=== PATIENT | male | born 1955 | race Caucasian/White ===

== ENCOUNTER 2023-10-17 14:23 | Inpatient (IN) | payer OTHER ==
[2023-10-17 16:05] LABS: BASO % 0.5 % (0-2.0); EOS % 0.9 % (0-4.5); HEMATOCRIT 29.7 % (35.4-49); HEMOGLOBIN 9.7 GM/dL (11.7-16.9); MCH 27.3 pg (25.7-33.7); MCHC 32.6 g/dl (32.0-35.9); MEAN CELL VOLUME 83.7 fl (80-96); MEAN PLT VOLUME 7.6 fl (7.5-11.1); MONO % 6.5 % (3.8-10.2); NEUT % 76.1 % (42.8-82.8); PLATELET COUNT 486 10^3/uL (134-434); RBC 3.54 M/mm3 (4.00-5.60); RDW 17.8 % (11.9-15.9); WHITE BLOOD COUNT 7.4 K/mm3 (4.0-10.0)
[2023-10-17 16:09] LABS: INR 1.09 (0.83-1.09); PROTHROMBIN TIME (PATIENT) 12.3 SEC (9.7-13.0)
[2023-10-17 16:11] LABS: ACTIVATED PTT 19.9 SECONDS (25.2-36.5)
[2023-10-17 16:24] LABS: POTASSIUM 4.5 mmol/L (3.5-5.1)
[2023-10-17 16:28] LABS: ALBUMIN 2.8 g/dl (3.4-5.0); CALCIUM 9.1 mg/dL (8.5-10.1)
[2023-10-17 16:32] LABS: CREATININE 0.5 mg/dL (0.55-1.3)
[2023-10-17 16:33] LABS: BILIRUBIN,TOTAL 0.4 mg/dL (0.2-1)
[2023-10-17] MEDS ORDERED: PIPERACILLIN/TAZOB 4.5 GM 4.5 GM/100 ML BAG IVPB ONE (18:52)
[2023-10-17] MEDS: PIPERACILLIN/TAZOB 4.5 GM 4.5 GM in DEXTROSE 5%-WATER 100 ML IVPB ONE (18:53)
[2023-10-17] MEDS: VANCOMYCIN HCL 1,500 MG in DEXTROSE 5%-WATER - 500 ML IVPB ONE (19:30)
[2023-10-17] MEDS: VANCOMYCIN PREMIX 1.5 GM 1,500 MG/300 ML BAG IVPB ONE (20:21)
[2023-10-18] MEDS: PIPERACILLIN/TAZOB 4.5 GM 4.5 GM in DEXTROSE 5%-WATER 100 ML IVPB SCH (01:23)
[2023-10-18 05:26] VITALS: BMI 14.9
[2023-10-18 08:52] VITALS: RESP 18
[2023-10-18 10:12] LABS: BASO % 0.8 % (0-2.0); HEMATOCRIT 29.5 % (35.4-49); HEMOGLOBIN 9.7 GM/dL (11.7-16.9); LYMPH % 11.5 % (8-40); MCH 27.7 pg (25.7-33.7); MCHC 32.9 g/dl (32.0-35.9); MEAN CELL VOLUME 84.2 fl (80-96); MEAN PLT VOLUME 6.7 fl (7.5-11.1); MONO % 6.2 % (3.8-10.2); NEUT % 80.5 % (42.8-82.8); PLATELET COUNT 473 10^3/uL (134-434); RDW 17.8 % (11.9-15.9)
[2023-10-18 10:27] LABS: POTASSIUM 3.7 mmol/L (3.5-5.1)
[2023-10-18 10:30] LABS: CALCIUM 8.9 mg/dL (8.5-10.1)
[2023-10-18 10:31] LABS: ALBUMIN 2.9 g/dl (3.4-5.0); BLOOD UREA NITROGEN 20.2 mg/dL (7-18); MAGNESIUM 2.3 mg/dL (1.8-2.4)
[2023-10-18 10:34] LABS: CREATININE 0.6 mg/dL (0.55-1.3); PHOSPHOROUS 3.6 mg/dL (2.5-4.9)
[2023-10-18 10:35] LABS: BILIRUBIN,TOTAL 0.5 mg/dL (0.2-1)
[2023-10-18] MEDS: ACETAMINOPHEN 650 MG/20.3 ML ORAL SOLUTION (CUPS) PEG PRN (11:10)
[2023-10-18] MEDS: QUEtiapine FUMARATE 25 MG TABLET GT SCH (11:11)
[2023-10-18] MEDS: PANTOPRAZOLE SODIUM 40 MG VIAL IVPUSH SCH (11:12)
[2023-10-18] MEDS: SCOPOLAMINE HYDROBROMIDE 1 PATCH PATCH.TD72 TD SCH (18:46)
[2023-10-18] MEDS ORDERED: METOPROLOL TARTRATE 25 MG TABLET (FP) GT SCH (22:00)
[2023-10-19] MEDS: SODIUM CHLORIDE 500 ML IV STA (01:03)
[2023-10-19] MEDS: PIPERACILLIN/TAZOB 4.5 GM 4.5 GM in DEXTROSE 5%-WATER 100 ML IVPB SCH ×2 (09:24→14:55)
[2023-10-19 10:16] LABS: BASO % 0.9 % (0-2.0); EOS % 2.3 % (0-4.5); HEMATOCRIT 25.5 % (35.4-49); HEMOGLOBIN 8.4 GM/dL (11.7-16.9); LYMPH % 18.1 % (8-40); MCH 27.7 pg (25.7-33.7); MEAN CELL VOLUME 83.8 fl (80-96); MONO % 7.5 % (3.8-10.2); NEUT % 71.2 % (42.8-82.8); PLATELET COUNT 442 10^3/uL (134-434); RBC 3.05 M/mm3 (4.00-5.60); RDW 17.5 % (11.9-15.9); WHITE BLOOD COUNT 5.6 K/mm3 (4.0-10.0)
[2023-10-19 10:34] LABS: CALCIUM 8.2 mg/dL (8.5-10.1); MAGNESIUM 2.1 mg/dL (1.8-2.4)
[2023-10-19 10:35] LABS: BLOOD UREA NITROGEN 14.9 mg/dL (7-18)
[2023-10-19 10:37] LABS: ALBUMIN 2.3 g/dl (3.4-5.0); CREATININE 0.3 mg/dL (0.55-1.3); PHOSPHOROUS 2.7 mg/dL (2.5-4.9)
[2023-10-19 10:39] LABS: BILIRUBIN,TOTAL 0.2 mg/dL (0.2-1); TOT PROT 5.8 g/dl (6.4-8.2)
[2023-10-20] MEDS: IRON SUCROSE INJECTION 100 MG in SODIUM CHLORIDE 95 ML IVPB ONE (18:56)
[2023-10-21] MEDS ORDERED: SCOPOLAMINE HYDROBROMIDE 1 PATCH PATCH.TD72 TD SCH (07:45)
[2023-10-21] MEDS: BUDESONIDE 0.5 MG/2 ML INH SUSP VIAL NEB SCH (08:40)
[2023-10-21 09:49] LABS: BASO % 0.8 % (0-2.0); EOS % 2.2 % (0-4.5); HEMATOCRIT 26.5 % (35.4-49); HEMOGLOBIN 8.8 GM/dL (11.7-16.9); LYMPH % 15.9 % (8-40); MCH 27.9 pg (25.7-33.7); MCHC 33.2 g/dl (32.0-35.9); MEAN CELL VOLUME 84.1 fl (80-96); MEAN PLT VOLUME 6.8 fl (7.5-11.1); MONO % 7.3 % (3.8-10.2); NEUT % 73.8 % (42.8-82.8); PLATELET COUNT 446 10^3/uL (134-434); RBC 3.15 M/mm3 (4.00-5.60); RDW 17.7 % (11.9-15.9); WHITE BLOOD COUNT 4.9 K/mm3 (4.0-10.0)
[2023-10-21 10:07] LABS: POTASSIUM 3.9 mmol/L (3.5-5.1)
[2023-10-21 10:13] LABS: BLOOD UREA NITROGEN 15.3 mg/dL (7-18); CALCIUM 8.4 mg/dL (8.5-10.1)
[2023-10-21 10:14] LABS: ALBUMIN 2.4 g/dl (3.4-5.0); MAGNESIUM 2.2 mg/dL (1.8-2.4)
[2023-10-21 10:17] LABS: CREATININE 0.4 mg/dL (0.55-1.3)
[2023-10-21 10:18] LABS: BILIRUBIN,TOTAL 0.2 mg/dL (0.2-1); TOT PROT 6.2 g/dl (6.4-8.2)
[2023-10-21] MEDS: CYANOCOBALAMIN 1,000 MCG TABLET (FP) GT SCH (11:16)
[2023-10-21] MEDS: POLYETHYLENE GLYCOL (HEALTHYLAX) 3350 17 GM PACKET GT SCH (11:16)
[2023-10-21] MEDS: CHOLECALCIFEROL (VIT D3) 1,000 UNIT (25 MCG) TABLET GT SCH (11:16)
[2023-10-21] MEDS: FOLIC ACID 1 MG TABLET (FP) GT SCH (11:16)
[2023-10-21] MEDS: DOCUSATE NA 100 MG/10 ML UNIT-DOSE CUPS GT SCH (11:16)
[2023-10-21] MEDS: GABAPENTIN 250 MG/5 ML ORAL SOLUTION, 470 ML BOTTLE GT SCH (14:10)
[2023-10-22 09:41] LABS: BASO % 1.1 % (0-2.0); HEMATOCRIT 27.2 % (35.4-49); LYMPH % 17.4 % (8-40); MCH 27.8 pg (25.7-33.7); MEAN CELL VOLUME 84.2 fl (80-96); MEAN PLT VOLUME 6.9 fl (7.5-11.1); MONO % 6.9 % (3.8-10.2); NEUT % 70.6 % (42.8-82.8); PLATELET COUNT 468 10^3/uL (134-434); RBC 3.23 M/mm3 (4.00-5.60); RDW 17.5 % (11.9-15.9); WHITE BLOOD COUNT 5.7 K/mm3 (4.0-10.0)
[2023-10-22 09:43] LABS: POTASSIUM 4.2 mmol/L (3.5-5.1)
[2023-10-22 09:45] LABS: CALCIUM 8.8 mg/dL (8.5-10.1)
[2023-10-22 09:46] LABS: ALBUMIN 2.4 g/dl (3.4-5.0); MAGNESIUM 2.2 mg/dL (1.8-2.4)
[2023-10-22 09:49] LABS: CREATININE 0.5 mg/dL (0.55-1.3)
[2023-10-22 09:51] LABS: BILIRUBIN,TOTAL 0.2 mg/dL (0.2-1); TOT PROT 6.1 g/dl (6.4-8.2)
[2023-10-22] MEDS ORDERED: APIXABAN 5 MG TABLET GT SCH (10:00)
[2023-10-22] MEDS: SODIUM CHLORIDE 500 ML IV STA ×2 (10:15→14:41)
[2023-10-22 18:24] VITALS: BP 105/66; PULSE 63; TEMP 98.1
== END 2023-10-22 19:48 | DRG 177 ==
LOC: JER 14:23 → JERBED 18:59 → J8W 20:58 → J5S 10-18 08:29
PROVIDERS: ADMIT Internal Medicine; ATTEND Internal Medicine
DX: J69.0 Pneumonitis due to inhalation of food and vomit (principal); E43 Unspecified severe protein-calorie malnutrition; J96.21 Acute and chronic respiratory failure with hypoxia; J44.0 Chronic obstructive pulmonary disease with (acute) lower respiratory infection; R04.2 Hemoptysis; Z68.1 Body mass index [BMI] 19.9 or less, adult; R78.81 Bacteremia; J95.851 Ventilator associated pneumonia; R64 Cachexia; I10 Essential (primary) hypertension; M48.02 Spinal stenosis, cervical region; D64.9 Anemia, unspecified; Z93.1 Gastrostomy status; Z93.0 Tracheostomy status; Z99.81 Dependence on supplemental oxygen
CPT/HCPCS: 0241U-QW; 36415; 70498-TC; 71045-TC-FY; 71260-TC; 80053; 82728; 82962; 83540; 83550; 83735; 84100; 85025; 85045; 85610; 85730; 86850; 86900; 86901; 87040; 87070; 87081; 87186; 87205; 93005; 93010; 93306-TC; 94640; 97116-GP; 97161-GP; 99285-25; J1756; Q9967

== ENCOUNTER 2023-11-08 00:37 | Inpatient (IN) | payer OTHER ==
[2023-11-08] MEDS ORDERED: ALBUTEROL SO4 2.5/IPRATROPIUM 0.5 INH SOL 3 ML VIAL.NEB. NEB ONE ×2 (00:51→01:20)
[2023-11-08] MEDS: SODIUM CHLORIDE 500 ML IV STA (01:00)
[2023-11-08] MEDS: ALBUTEROL SO4 2.5/IPRATROPIUM 0.5 INH SOL 3 ML VIAL.NEB. NEB ONE ×2 (01:00→01:26)
[2023-11-08 01:12] LABS: BASO % 0.2 % (0-2.0); EOS % 0.9 % (0-4.5); HEMATOCRIT 25.2 % (35.4-49); HEMOGLOBIN 8.5 GM/dL (11.7-16.9); LYMPH % 10.3 % (8-40); MCH 27.9 pg (25.7-33.7); MCHC 33.6 g/dl (32.0-35.9); MEAN CELL VOLUME 83.1 fl (80-96); MEAN PLT VOLUME 6.7 fl (7.5-11.1); MONO % 7.4 % (3.8-10.2); NEUT % 81.2 % (42.8-82.8); PLATELET COUNT 331 10^3/uL (134-434); RBC 3.03 M/mm3 (4.00-5.60); RDW 17.8 % (11.9-15.9); WHITE BLOOD COUNT 8.7 K/mm3 (4.0-10.0)
[2023-11-08] MEDS: BUDESONIDE 0.25 MG/2ML INH SUSP VIAL NEB ONE (01:26)
[2023-11-08 01:41] LABS: POTASSIUM 3.6 mmol/L (3.5-5.1)
[2023-11-08 01:42] LABS: CALCIUM 8.6 mg/dL (8.5-10.1)
[2023-11-08 01:43] LABS: ALBUMIN 2.4 g/dl (3.4-5.0); BLOOD UREA NITROGEN 22.3 mg/dL (7-18)
[2023-11-08 01:47] LABS: CREATININE 0.5 mg/dL (0.55-1.3)
[2023-11-08 01:48] LABS: BILIRUBIN,TOTAL 0.2 mg/dL (0.2-1); TOT PROT 6.1 g/dl (6.4-8.2)
[2023-11-08] MEDS ORDERED: PIPERACILLIN/TAZOB 4.5 GM 4.5 GM/100 ML BAG IVPB ONE (01:50)
[2023-11-08] MEDS ORDERED: VANCOMYCIN 1 GRAM (PRE-DOCKED) 1,000 MG/250 ML BAG IVPB ONE (01:50)
[2023-11-08 01:51] LABS: N-TERMINAL BNP 412.9 pg/ml (5-125)
[2023-11-08] MEDS: PIPERACILLIN/TAZOB 4.5 GM 4.5 GM in DEXTROSE 5%-WATER 100 ML IVPB ONE (01:57)
[2023-11-08 02:07] LABS: ARTERIAL BLD GAS O2 SATURATION 98.4 % (95-98); ARTERIAL BLOOD GAS BASE EXCESS 4.9 mmol/L (-2-2); ARTERIAL BLOOD GAS PO2 113.9 mmHg (80-100); ARTERIAL BLOOD GAS pH 7.462 (7.350-7.450)
[2023-11-08 02:15] LABS: INR 1.04 (0.83-1.09)
[2023-11-08 02:16] LABS: ALLENS TEST POSITIVE; VENT MODE V-AC; VENT RATE 20
[2023-11-08 02:18] LABS: ACTIVATED PTT 28.4 SECONDS (25.2-36.5)
[2023-11-08] MEDS: VANCOMYCIN 1,000 MG in DEXTROSE 5%-WATER - 250 ML IVPB ONE (02:27)
[2023-11-08] MEDS: SODIUM CHLORIDE 0.9% 500 ML INFUS.BAG IV ONE (02:28)
[2023-11-08] MEDS: methylPREDNISolone NA SUCC 40 MG/1 ML VIAL IVPUSH SCH (02:54)
[2023-11-08] MEDS: ALBUTEROL SO4 0.083% IH SOL 2.5 MG/3 ML VIAL.NEB. NEB SCH ×2 (02:55→07:43)
[2023-11-08 07:09] LABS: HEMATOCRIT 24.7 % (35.4-49); HEMOGLOBIN 8.1 GM/dL (11.7-16.9); MCH 27.5 pg (25.7-33.7); MCHC 32.8 g/dl (32.0-35.9); MEAN PLT VOLUME 7.8 fl (7.5-11.1); PLATELET COUNT 340 10^3/uL (134-434); RBC 2.94 M/mm3 (4.00-5.60); RDW 17.8 % (11.9-15.9); WHITE BLOOD COUNT 8.7 K/mm3 (4.0-10.0)
[2023-11-08 07:17] LABS: INR 1.05 (0.83-1.09); PROTHROMBIN TIME (PATIENT) 12.1 SEC (9.7-13.0)
[2023-11-08 07:35] LABS: PHOSPHOROUS 3.6 mg/dL (2.5-4.9)
[2023-11-08 09:10] LABS: ANISOCYTOSIS 1+; MACROCYTOSIS 0; OVALOCYTE 1+
[2023-11-08] MEDS: HEPARIN NA (PORCINE) 5,000 UNITS/ML 1ML VIAL SQ SCH (09:11)
[2023-11-08] MEDS: QUEtiapine FUMARATE 25 MG TABLET PO SCH (09:11)
[2023-11-08] MEDS: POLYETHYLENE GLYCOL (HEALTHYLAX) 3350 17 GM PACKET PO SCH (09:11)
[2023-11-08] MEDS: PIPERACILLIN/TAZOB 3.375 GM 3.375 GM in DEXTROSE 5%-WATER - 50 ML IVPB SCH ×2 (09:12→17:45)
[2023-11-08] MEDS: MUPIROCIN 2% TOPICAL OINTMENT FOR DECOLONIZATION NS SCH (09:20)
[2023-11-08] MEDS ORDERED: FAMOTIDINE 20 MG/50 ML IVPB 20 MG/50 ML MG IVPB SCH (10:00)
[2023-11-08] MEDS: LACTATED RINGERS SOLUTION 1000 ML INFUS.BAG IV ONE (11:17)
[2023-11-08] MEDS: GABAPENTIN 100 MG CAPSULE PO SCH (13:49)
[2023-11-08] MEDS ORDERED: VANCOMYCIN 750 MG in DEXTROSE 5%-WATER - 150 ML IVPB SCH (14:00)
[2023-11-08] MEDS ORDERED: VANCOMYCIN/WATER FOR INJ (PEG) 750 MG/150 ML BAG IVPB SCH (14:00)
[2023-11-08 14:11] LABS: ARTERIAL BLD GAS O2 SATURATION 98.8 % (95-98); ARTERIAL BLOOD GAS BASE EXCESS 5.8 mmol/L (-2-2); ARTERIAL BLOOD GAS PO2 126.1 mmHg (80-100); ARTERIAL BLOOD GAS pH 7.507 (7.350-7.450)
[2023-11-08 14:17] LABS: ALLENS TEST POSITIVE
[2023-11-08 14:18] LABS: VENT MODE A/C; VENT RATE 20
[2023-11-08] MEDS: SENNOSIDES 8.6MG TABLET (FP) PO SCH (21:01)
[2023-11-08] MEDS: CHLORHEXIDINE GLUCONATE 4% CLEANSER FOR DECOLONIZATION TP SCH (21:02)
[2023-11-09 07:50] LABS: BASO % 0.3 % (0-2.0); HEMATOCRIT 24.9 % (35.4-49); HEMOGLOBIN 8.1 GM/dL (11.7-16.9); LYMPH % 10.8 % (8-40); MCH 27.2 pg (25.7-33.7); MCHC 32.6 g/dl (32.0-35.9); MEAN CELL VOLUME 83.6 fl (80-96); MEAN PLT VOLUME 7.6 fl (7.5-11.1); MONO % 3.2 % (3.8-10.2); NEUT % 85.7 % (42.8-82.8); PLATELET COUNT 360 10^3/uL (134-434); RBC 2.98 M/mm3 (4.00-5.60); RDW 17.7 % (11.9-15.9); WHITE BLOOD COUNT 6.2 K/mm3 (4.0-10.0)
[2023-11-09 08:24] LABS: BLOOD UREA NITROGEN 19.6 mg/dL (7-18)
[2023-11-09 08:25] LABS: CALCIUM 8.7 mg/dL (8.5-10.1)
[2023-11-09 08:26] LABS: ALBUMIN 2.4 g/dl (3.4-5.0); MAGNESIUM 2.2 mg/dL (1.8-2.4)
[2023-11-09 08:29] LABS: CREATININE 0.4 mg/dL (0.55-1.3); PHOSPHOROUS 3.3 mg/dL (2.5-4.9)
[2023-11-09 08:30] LABS: BILIRUBIN,TOTAL 0.3 mg/dL (0.2-1); TOT PROT 6.2 g/dl (6.4-8.2)
[2023-11-10 08:55] LABS: ARTERIAL BLD GAS O2 SATURATION 97.3 % (95-98); ARTERIAL BLOOD GAS BASE EXCESS 8.4 mmol/L (-2-2); ARTERIAL BLOOD GAS PO2 88.4 mmHg (80-100); ARTERIAL BLOOD GAS pH 7.488 (7.350-7.450)
[2023-11-10 08:57] LABS: ALLENS TEST POSITIVE
[2023-11-10 08:58] LABS: VENT MODE A/C; VENT RATE 20
[2023-11-10 12:49] LABS: HEMATOCRIT 31.1 % (35.4-49); HEMOGLOBIN 10.3 GM/dL (11.7-16.9); MCH 27.7 pg (25.7-33.7); MCHC 33.1 g/dl (32.0-35.9); MEAN CELL VOLUME 83.7 fl (80-96); MEAN PLT VOLUME 7.7 fl (7.5-11.1); PLATELET COUNT 498 10^3/uL (134-434); RBC 3.72 M/mm3 (4.00-5.60); RDW 17.9 % (11.9-15.9); WHITE BLOOD COUNT 7.1 K/mm3 (4.0-10.0)
[2023-11-10 13:09] LABS: CALCIUM 9.5 mg/dL (8.5-10.1)
[2023-11-10 13:10] LABS: BLOOD UREA NITROGEN 24.7 mg/dL (7-18); MAGNESIUM 2.6 mg/dL (1.8-2.4)
[2023-11-10 13:13] LABS: CREATININE 0.6 mg/dL (0.55-1.3); PHOSPHOROUS 2.8 mg/dL (2.5-4.9)
[2023-11-10 13:14] LABS: ALBUMIN 2.9 g/dl (3.4-5.0); BILIRUBIN,TOTAL 0.2 mg/dL (0.2-1); TOT PROT 7.4 g/dl (6.4-8.2)
[2023-11-10] MEDS: ALBUTEROL SO4 2.5/IPRATROPIUM 0.5 INH SOL 3 ML VIAL.NEB. NEB SCH (14:21)
[2023-11-11 07:24] LABS: HEMATOCRIT 27.8 % (35.4-49); HEMOGLOBIN 9.1 GM/dL (11.7-16.9); MCH 27.6 pg (25.7-33.7); MCHC 32.6 g/dl (32.0-35.9); MEAN CELL VOLUME 84.7 fl (80-96); MEAN PLT VOLUME 7.6 fl (7.5-11.1); PLATELET COUNT 429 10^3/uL (134-434); RBC 3.28 M/mm3 (4.00-5.60); WHITE BLOOD COUNT 5.5 K/mm3 (4.0-10.0)
[2023-11-11 07:41] LABS: ALBUMIN 2.6 g/dl (3.4-5.0); CALCIUM 8.8 mg/dL (8.5-10.1)
[2023-11-11 07:42] LABS: BLOOD UREA NITROGEN 28.7 mg/dL (7-18); MAGNESIUM 2.3 mg/dL (1.8-2.4)
[2023-11-11 07:45] LABS: CREATININE 0.5 mg/dL (0.55-1.3); PHOSPHOROUS 2.8 mg/dL (2.5-4.9)
[2023-11-11 07:46] LABS: BILIRUBIN,TOTAL 0.2 mg/dL (0.2-1); TOT PROT 6.3 g/dl (6.4-8.2)
[2023-11-11] MEDS: SCOPOLAMINE HYDROBROMIDE 1 PATCH PATCH.TD72 TD SCH (16:28)
[2023-11-11] MEDS ORDERED: HEPARIN NA (PORCINE) 5,000 UNITS/ML 1ML VIAL SQ SCH (22:00)
[2023-11-11] MEDS: APIXABAN 5 MG TABLET PO SCH (22:03)
[2023-11-12 07:34] LABS: HEMATOCRIT 29.8 % (35.4-49); HEMOGLOBIN 9.7 GM/dL (11.7-16.9); MCH 27.6 pg (25.7-33.7); MCHC 32.6 g/dl (32.0-35.9); MEAN CELL VOLUME 84.5 fl (80-96); MEAN PLT VOLUME 7.3 fl (7.5-11.1); PLATELET COUNT 469 10^3/uL (134-434); RBC 3.52 M/mm3 (4.00-5.60); RDW 17.9 % (11.9-15.9); WHITE BLOOD COUNT 7.9 K/mm3 (4.0-10.0)
[2023-11-12 07:54] LABS: POTASSIUM 4.3 mmol/L (3.5-5.1)
[2023-11-12 07:55] LABS: CALCIUM 8.8 mg/dL (8.5-10.1)
[2023-11-12 07:56] LABS: BLOOD UREA NITROGEN 28.3 mg/dL (7-18); MAGNESIUM 2.1 mg/dL (1.8-2.4)
[2023-11-12 07:59] LABS: CREATININE 0.5 mg/dL (0.55-1.3); PHOSPHOROUS 2.8 mg/dL (2.5-4.9)
[2023-11-12 14:25] VITALS: BMI 14.6
[2023-11-12] MEDS ORDERED: MUPIROCIN 2% TOPICAL OINTMENT FOR DECOLONIZATION NS SCH (22:00)
[2023-11-12] MEDS: SENNOSIDES 8.6MG TABLET (FP) PO SCH (22:02)
[2023-11-12] MEDS: GABAPENTIN 100 MG CAPSULE PO SCH (22:03)
[2023-11-13] MEDS: PIPERACILLIN/TAZOB 3.375 GM 3.375 GM in DEXTROSE 5%-WATER - 50 ML IVPB SCH (02:01)
[2023-11-13] MEDS: AMINO ACIDS/PROTEIN HYDROLYS 30 ML LIQUID.PKT GT SCH (08:48)
[2023-11-13 09:27] LABS: HEMATOCRIT 28.7 % (35.4-49); HEMOGLOBIN 9.6 GM/dL (11.7-16.9); MCH 27.4 pg (25.7-33.7); MCHC 33.3 g/dl (32.0-35.9); MEAN CELL VOLUME 82.2 fl (80-96); PLATELET COUNT 457 10^3/uL (134-434); RBC 3.49 M/mm3 (4.00-5.60); WHITE BLOOD COUNT 8.4 K/mm3 (4.0-10.0)
[2023-11-13 09:46] LABS: POTASSIUM 4.1 mmol/L (3.5-5.1)
[2023-11-13 09:54] LABS: BLOOD UREA NITROGEN 23.1 mg/dL (7-18); CALCIUM 8.6 mg/dL (8.5-10.1)
[2023-11-13 09:58] LABS: CREATININE 0.4 mg/dL (0.55-1.3); PHOSPHOROUS 2.6 mg/dL (2.5-4.9)
[2023-11-13] MEDS: QUEtiapine FUMARATE 25 MG TABLET PO SCH (12:11)
[2023-11-13] MEDS: methylPREDNISolone NA SUCC 40 MG/1 ML VIAL IVPUSH SCH (12:11)
[2023-11-13] MEDS: POLYETHYLENE GLYCOL (HEALTHYLAX) 3350 17 GM PACKET PO SCH (12:12)
[2023-11-15 09:08] LABS: EOS % 0.7 % (0-4.5); HEMATOCRIT 28.2 % (35.4-49); HEMOGLOBIN 9.5 GM/dL (11.7-16.9); LYMPH % 10.3 % (8-40); MCH 28.1 pg (25.7-33.7); MCHC 33.7 g/dl (32.0-35.9); MEAN CELL VOLUME 83.4 fl (80-96); MONO % 3.6 % (3.8-10.2); NEUT % 85.4 % (42.8-82.8); PLATELET COUNT 488 10^3/uL (134-434); RBC 3.38 M/mm3 (4.00-5.60); RDW 18.9 % (11.9-15.9); WHITE BLOOD COUNT 10.8 K/mm3 (4.0-10.0)
[2023-11-15 09:24] LABS: POTASSIUM 3.6 mmol/L (3.5-5.1)
[2023-11-15 09:28] LABS: ALBUMIN 2.3 g/dl (3.4-5.0); BLOOD UREA NITROGEN 25.3 mg/dL (7-18)
[2023-11-15 09:29] LABS: MAGNESIUM 2.2 mg/dL (1.8-2.4)
[2023-11-15 09:32] LABS: CREATININE 0.5 mg/dL (0.55-1.3); PHOSPHOROUS 3.2 mg/dL (2.5-4.9)
[2023-11-15 09:33] LABS: BILIRUBIN,TOTAL 0.2 mg/dL (0.2-1); TOT PROT 5.6 g/dl (6.4-8.2)
[2023-11-17 10:50] LABS: BASO % 0.1 % (0-2.0); EOS % 0.1 % (0-4.5); HEMATOCRIT 28.4 % (35.4-49); HEMOGLOBIN 9.5 GM/dL (11.7-16.9); LYMPH % 11.8 % (8-40); MCH 27.8 pg (25.7-33.7); MCHC 33.4 g/dl (32.0-35.9); MEAN CELL VOLUME 83.2 fl (80-96); MONO % 4.4 % (3.8-10.2); NEUT % 83.6 % (42.8-82.8); PLATELET COUNT 508 10^3/uL (134-434); RBC 3.41 M/mm3 (4.00-5.60); RDW 18.3 % (11.9-15.9); WHITE BLOOD COUNT 8.7 K/mm3 (4.0-10.0)
[2023-11-17 11:03] LABS: POTASSIUM 3.7 mmol/L (3.5-5.1)
[2023-11-17 11:10] LABS: BLOOD UREA NITROGEN 26.4 mg/dL (7-18)
[2023-11-17 11:12] LABS: ALBUMIN 2.4 g/dl (3.4-5.0); CALCIUM 9.1 mg/dL (8.5-10.1)
[2023-11-17 11:14] LABS: CREATININE 0.4 mg/dL (0.55-1.3)
[2023-11-17 11:16] LABS: BILIRUBIN,TOTAL 0.3 mg/dL (0.2-1); TOT PROT 5.9 g/dl (6.4-8.2)
[2023-11-18 09:54] LABS: BASO % 0.1 % (0-2.0); EOS % 0.3 % (0-4.5); HEMATOCRIT 28.7 % (35.4-49); HEMOGLOBIN 9.2 GM/dL (11.7-16.9); LYMPH % 14.6 % (8-40); MCH 27.3 pg (25.7-33.7); MCHC 32.2 g/dl (32.0-35.9); MEAN CELL VOLUME 84.8 fl (80-96); MEAN PLT VOLUME 7.3 fl (7.5-11.1); MONO % 6.2 % (3.8-10.2); NEUT % 78.8 % (42.8-82.8); PLATELET COUNT 494 10^3/uL (134-434); RBC 3.38 M/mm3 (4.00-5.60); RDW 18.2 % (11.9-15.9); WHITE BLOOD COUNT 6.7 K/mm3 (4.0-10.0)
[2023-11-18 10:11] LABS: POTASSIUM 3.7 mmol/L (3.5-5.1)
[2023-11-18 10:14] LABS: ALBUMIN 2.4 g/dl (3.4-5.0); CALCIUM 8.9 mg/dL (8.5-10.1); MAGNESIUM 2.1 mg/dL (1.8-2.4)
[2023-11-18 10:16] LABS: CREATININE 0.4 mg/dL (0.55-1.3)
[2023-11-18 10:17] LABS: PHOSPHOROUS 2.8 mg/dL (2.5-4.9)
[2023-11-18 10:18] LABS: BILIRUBIN,TOTAL 0.2 mg/dL (0.2-1); TOT PROT 5.9 g/dl (6.4-8.2)
[2023-11-19 09:23] LABS: BASO % 0.2 % (0-2.0); EOS % 0.2 % (0-4.5); HEMATOCRIT 28.1 % (35.4-49); HEMOGLOBIN 9.2 GM/dL (11.7-16.9); LYMPH % 16.2 % (8-40); MCH 27.4 pg (25.7-33.7); MCHC 32.7 g/dl (32.0-35.9); MEAN CELL VOLUME 83.8 fl (80-96); MEAN PLT VOLUME 7.1 fl (7.5-11.1); MONO % 6.5 % (3.8-10.2); NEUT % 76.9 % (42.8-82.8); PLATELET COUNT 503 10^3/uL (134-434); RBC 3.36 M/mm3 (4.00-5.60); RDW 18.6 % (11.9-15.9); WHITE BLOOD COUNT 6.6 K/mm3 (4.0-10.0)
[2023-11-19 09:40] LABS: POTASSIUM 3.8 mmol/L (3.5-5.1)
[2023-11-19 09:47] LABS: ALBUMIN 2.4 g/dl (3.4-5.0); BLOOD UREA NITROGEN 26.9 mg/dL (7-18)
[2023-11-19 09:51] LABS: CALCIUM 9.3 mg/dL (8.5-10.1); CREATININE 0.5 mg/dL (0.55-1.3); MAGNESIUM 2.1 mg/dL (1.8-2.4); PHOSPHOROUS 2.5 mg/dL (2.5-4.9)
[2023-11-19 09:53] LABS: BILIRUBIN,TOTAL 0.2 mg/dL (0.2-1); TOT PROT 5.8 g/dl (6.4-8.2)
[2023-11-19] MEDS ORDERED: predniSONE 10 MG TABLET (UD) PO SCH (10:00)
[2023-11-19] MEDS: predniSONE 20 MG TABLET (UD) PO ONE (13:18)
[2023-11-20 06:29] VITALS: RESP 20
[2023-11-20] MEDS: predniSONE 20 MG, predniSONE 10 MG PO ONE (09:41)
[2023-11-20 10:14] LABS: EOS % 0.2 % (0-4.5); HEMATOCRIT 30.4 % (35.4-49); HEMOGLOBIN 9.8 GM/dL (11.7-16.9); MCH 27.3 pg (25.7-33.7); MCHC 32.2 g/dl (32.0-35.9); MEAN CELL VOLUME 84.7 fl (80-96); MEAN PLT VOLUME 7.3 fl (7.5-11.1); MONO % 6.1 % (3.8-10.2); NEUT % 75.7 % (42.8-82.8); PLATELET COUNT 537 10^3/uL (134-434); RBC 3.58 M/mm3 (4.00-5.60); RDW 18.5 % (11.9-15.9); WHITE BLOOD COUNT 7.1 K/mm3 (4.0-10.0)
[2023-11-20 10:55] LABS: POTASSIUM 3.4 mmol/L (3.5-5.1)
[2023-11-20 10:57] LABS: CALCIUM 9.1 mg/dL (8.5-10.1)
[2023-11-20 10:58] LABS: ALBUMIN 2.5 g/dl (3.4-5.0); MAGNESIUM 2.2 mg/dL (1.8-2.4)
[2023-11-20 11:01] LABS: CREATININE 0.4 mg/dL (0.55-1.3); PHOSPHOROUS 2.5 mg/dL (2.5-4.9)
[2023-11-20 11:02] LABS: BILIRUBIN,TOTAL 0.2 mg/dL (0.2-1)
[2023-11-20] MEDS: POTASSIUM CHLORIDE ORAL LIQUID 20 MEQ/15 ML GT ONE (14:19)
[2023-11-20 14:30] VITALS: PULSE 62
[2023-11-20 17:24] VITALS: BP 104/71; TEMP 97.7
[2023-11-21] MEDS ORDERED: predniSONE 20 MG TABLET (UD) PO ONE (10:00)
[2023-11-22] MEDS ORDERED: predniSONE 10 MG TABLET (UD) PO ONE (10:00)
[2023-11-23] MEDS ORDERED: predniSONE 5 MG TABLET (UD) PO ONE (10:00)
== END 2023-11-20 17:52 | DRG 207 ==
LOC: JER 00:37 → JERBED 02:25 → JICU 04:25 → J5S 11-12 18:44
PROVIDERS: ADMIT Internal Medicine Pulmonary Disease; ATTEND Internal Medicine
PROC: 5A1955Z Respiratory Ventilation, Greater than 96 Consecutive Hours (ICD-10-PCS; principal; 2023-11-08)
DX: J15.1 Pneumonia due to Pseudomonas (principal); J96.21 Acute and chronic respiratory failure with hypoxia; J96.22 Acute and chronic respiratory failure with hypercapnia; E43 Unspecified severe protein-calorie malnutrition; J44.0 Chronic obstructive pulmonary disease with (acute) lower respiratory infection; J90 Pleural effusion, not elsewhere classified; J44.1 Chronic obstructive pulmonary disease with (acute) exacerbation; R64 Cachexia; Z68.1 Body mass index [BMI] 19.9 or less, adult; M48.00 Spinal stenosis, site unspecified; I10 Essential (primary) hypertension; D64.9 Anemia, unspecified; I48.91 Unspecified atrial fibrillation; Z93.0 Tracheostomy status; Z93.1 Gastrostomy status
CPT/HCPCS: 0241U-QW; 36415; 36600; 71045-TC-FY; 71260-TC; 80048; 80053; 82550; 82803; 82962; 83735; 83880; 84100; 84484; 85025; 85027; 85610; 85730; 86850; 86900; 86901; 87070; 87186; 87205; 93005; 93010; 94002; 94640; 97116-GP; 97162-GP; 99285-25; J1644; Q9967